=== PATIENT | male | born 1965 | race Caucasian/White ===

== ENCOUNTER → 2023-03-29 07:09 | Outpatient (REF) | payer BC, SELFPAY | LOC: DHCBC/DCA 07:09 | PROVIDERS: ATTENDING PHYSICIAN Internal Medicine Interventional Cardiology; FAMILY PHYSICIAN Physician Assistant Medical | DX: R06.09 Other forms of dyspnea (principal); I25.5 Ischemic cardiomyopathy; I25.2 Old myocardial infarction | CPT/HCPCS: 78452; 93017; A9500; J2785 ==

== ENCOUNTER → 2023-06-06 14:04 | Outpatient (REF) | payer BC, SELFPAY | LOC: DHCBS HW 14:04 | PROVIDERS: ATTENDING PHYSICIAN Physician Assistant; FAMILY PHYSICIAN Physician Assistant Medical | DX: R06.09 Other forms of dyspnea (principal); I25.5 Ischemic cardiomyopathy; I25.10 Atherosclerotic heart disease of native coronary artery without angina pectoris; I25.2 Old myocardial infarction | CPT/HCPCS: 71046; 93306 ==